=== PATIENT | female | born 1985 ===

== ENCOUNTER 2017-01-31 11:23 | Emergency (ER) | payer OTHER ==
[2017-01-31 11:34] VITALS: BMI 21.1
[2017-01-31] MEDS ORDERED: Sodium Chloride 0.9% 1,000 ML IV STA (12:50)
[2017-01-31 13:05] LABS: BASO % 0.7 % (0.0-2.0); EOS # 0.1 K/uL (0.0-0.7); EOS % 1.8 % (0.0-4.0); HEMATOCRIT 36.7 % (34.0-47.0); LYMPH # 2.5 K/uL (1.0-4.3); LYMPH % 47.3 % (20.0-40.0); MEAN CELL VOLUME 94.9 fl (81.0-99.0); MEAN CORPUSCULAR HEMOGLOBIN 31.7 pg (27.0-31.0); MEAN CORPUSCULAR HGB CONC 33.4 g/dL (33.0-37.0); MEAN PLATELET VOLUME 9.4 fl (7.2-11.7); MONO # 0.3 K/uL (0.0-0.8); MONO % 4.8 % (0.0-10.0); NEUT # 2.4 K/uL (1.8-7.0); NEUT % 45.4 % (50.0-75.0); NRBC % 0.1 % (0.0-0.0); RED CELL DISTRIBUTION WIDTH 13.1 % (11.5-14.5); WHITE BLOOD COUNT 5.3 K/uL (4.8-10.8)
[2017-01-31 13:27] LABS: BLOOD UREA NITROGEN 9 mg/dl (7-17); GFR AFRICAN-AMERICAN > 60; GLUCOSE,RANDOM 97 mg/dL (65-105)
[2017-01-31 13:28] LABS: CALCIUM 9.4 mg/dL (8.4-10.2); CARBON DIOXIDE 27 mmol/L (22-30); CHLORIDE 106 mmol/L (98-107); POTASSIUM 3.7 MMOL/L (3.6-5.0); SODIUM 141 mmol/l (132-148)
--- NOTE | 2017-01-31 14:49 | CT ---
PROCEDURE: CT HEAD WITHOUT CONTRAST. HISTORY: head injury COMPARISON: None available. TECHNIQUE: Axial computed tomography images were obtained through the head/brain without intravenous contrast. Radiation dose: Total exam DLP = 869.43 mGy-cm. This CT exam was performed using one or more of the following dose reduction techniques: Automated exposure control, adjustment of the mA and/or kV according to patient size, and/or use of iterative reconstruction technique. FINDINGS: HEMORRHAGE: No intracranial hemorrhage. BRAIN: No mass effect or edema. No atrophy or chronic microvascular ischemic changes. VENTRICLES: Unremarkable. No hydrocephalus. CALVARIUM: Unremarkable. PARANASAL SINUSES: Minimal left maxillary mucoperiosteal thickening. MASTOID AIR CELLS: Unremarkable as visualized. No inflammatory changes. OTHER FINDINGS: None. IMPRESSION: No intracranial hemorrhage. Minimal chronic left maxillary sinusitis. Otherwise unremarkable.
--- NOTE | 2017-01-31 15:32 | ED PDOC ---
Syncope/Near Syncope/Dizziness Time Seen by Provider: 01/31/17 11:49 Chief Complaint (Nursing): Syncope Chief Complaint (Provider): Syncope History Per: Patient History/Exam Limitations: no limitations Onset/Duration Of Symptoms: Days (x1 ) Number Of Syncopal Episodes: 1 Activity At Onset Of Symptoms: Walking Associated Symptoms Preceding Syncopal Episode: Other (dizziness) Fall Associated With With Symptoms: Yes, No Injury As Result Of Fall Additional Complaint(s): Nirmala Hilliard is a 31 year old female, with no past medical history, who presents to the emergency department due to syncope episode associated with dizziness, mild headache and nausea onset since yesterday. Patient reports when she woke up she fell dizzy, she got up to open her door to let other richard in but she blacked out and fell on the floor for a couple of minutes. Patient has been dizzy since then and today symptoms are worst when moving her head or walking. Patient denies any chest pain, difficulty breathing, vomit and abdominal pain. She states she's still taking control pills and had a similar episode 1 month ago. PMD: None provided. Past Medical History Reviewed: Historical Data, Nursing Documentation, Vital Signs Vital Signs: Last Vital Signs Temp 98 F 01/31/17 11:33 Pulse 55 L 01/31/17 11:33 Resp BP 114/67 01/31/17 11:33 Pulse Ox 100 01/31/17 11:33 - Medical History PMH: No Chronic Diseases - Surgical History Surgical History: Appendectomy - Family History Family History: States: Unknown Family Hx - Social History Current smoker - smoking cessation education provided: No Alcohol: None Drugs: Denies - Home Medications Home Medications: Ambulatory Orders Medication Instructions Recorded Meclizine [Meclizine*] 25 mg PO Q6 PRN #15 tab 01/31/17 - Allergies Allergies/Adverse Reactions: Allergies Allergy/AdvReac Type Severity Reaction Status Date / Time No Known Allergies Allergy Verified 01/31/17 12:48 Review of Systems ROS Statement: Except As Marked, All Systems Reviewed And Found Negative Cardiovascular: Negative for: Chest Pain Respiratory: Negative for: Shortness of Breath Gastrointestinal: Positive for: Nausea. Negative for: Vomiting, Abdominal Pain Neurological: Positive for: Headache (mild) Physical Exam - Reviewed Nursing Documentation Reviewed: Yes Vital Signs Reviewed: Yes - Physical Exam Appears: Positive for: Well, Non-toxic, No Acute Distress Head Exam: Positive for: ATRAUMATIC, NORMAL INSPECTION, NORMOCEPHALIC Skin: Positive for: Normal Color, Warm, Dry Eye Exam: Positive for: EOMI, Normal appearance, PERRL ENT: Positive for: Normal ENT Inspection Neck: Positive for: Normal, Painless ROM, Supple Cardiovascular/Chest: Positive for: Regular Rate, Rhythm. Negative for: Murmur Respiratory: Positive for: Normal Breath Sounds. Negative for: Respiratory Distress Gastrointestinal/Abdominal: Positive for: Normal Exam, Bowel Sounds, Soft. Negative for: Tenderness Back: Positive for: Normal Inspection Extremity: Positive for: Normal ROM. Negative for: Tenderness Neurologic/Psych: Positive for: Alert (x3), Oriented (x3), Gait (steady). Negative for: Motor/Sensory Deficits - Laboratory Results Result Diagrams: 01/31/17 12:56 01/31/17 12:56 - ECG ECG: Positive for: Interpreted By Me, Viewed By Me ECG Rhythm: Positive for: Normal QRS, Normal ST Segment, Sinus Rhythm. Negative for: ST/T Changes Rate: 54 O2 Sat by Pulse Oximetry: 100 (RA) Pulse Ox Interpretation: Normal - Progress Re-evaluation Time: 15:55 Condition: Re-examined, Improved Medical Decision Making Medical Decision Making: Initial Impression: Syncope with head injury differential include cardiac arrhythmia, vasovagal syncope, vertigo, concussion Initial Plan: --EKG --Urine dipstick --Urine --Antivert 25 mg PO --NS IV 1,000 ml at 1000mls/hr --Basic Metabolic Panel --Troponin I --Head W/O contrast [CT] --CBC w/ differential --D Dimer --reevaluation Time: 14:47 Head W/O contrast [CT] FINDINGS: HEMORRHAGE: No intracranial hemorrhage. BRAIN: No mass effect or edema. No atrophy or chronic microvascular ischemic changes. VENTRICLES: Unremarkable. No hydrocephalus. CALVARIUM: Unremarkable. PARANASAL SINUSES: Minimal left maxillary mucoperiosteal thickening. MASTOID AIR CELLS: Unremarkable as visualized. No inflammatory changes. OTHER FINDINGS: None. IMPRESSION: No intracranial hemorrhage. Minimal chronic left maxillary sinusitis. Otherwise unremarkable. Scribe Attestation: Documented by Gurinder Borrego, acting as a scribe for Felisa Bethea MD Provider Scribe Attestation: All medical record entries made by the Scribe were at my direction and personally dictated by me. I have reviewed the chart and agree that the record accurately reflects my personal performance of the history, physical exam, medical decision making, and the department course for this patient. I have also personally directed, reviewed, and agree with the discharge instructions and disposition. Disposition - Clinical Impression Clinical Impression: Syncope, Vertigo - Patient ED Disposition Is Patient to be Admitted: No Doctor Will See Patient In The: Office Counseled Patient/Family Regarding: Studies Performed, Diagnosis, Need For Followup - Disposition Referrals: Allan Zhu MD [Staff Provider] - Pablo Alegria MD [Staff Provider] - Disposition: Routine/Home Disposition Time: 15:56 Condition: GOOD Additional Instructions: take your medications as instructed. Follow up with your PCP in 2-3 days. Prescriptions: Meclizine [Meclizine*] 25 mg PO Q6 PRN #15 tab PRN Reason: Dizziness Instructions: Vertigo (ED), Syncope (DC)
[2017-01-31 16:21] VITALS: BP 119/60; RESP 18; TEMP 98.2
[2017-01-31 16:58] VITALS: PULSE 54; O2SAT 100
--- NOTE | 2017-02-01 23:09 | CARD ---
APPROVED REPORT EKG Measurement Heart [id number] <Conclusion> Sinus bradycardia Otherwise normal ECG
== END 2017-01-31 16:37 | disposition home or self-care (01) ==
LOC: H.ER 11:23
DX: R55 Syncope and collapse (principal); R42 Dizziness and giddiness
CPT/HCPCS: 70450; 80048; 81025; 82948; 84484; 85025; 85378; 93005; 96360; 99285; J7040